=== PATIENT | female | born 1950 | race Caucasian/White ===

== ENCOUNTER 2018-06-17 16:04 | Outpatient (CLI) | payer MEDICARE, OTHER ==
--- NOTE | 2018-07-02 08:58 | Mammography Report ---
Reason: SCREENING MAMMO Procedure Date: 06/17/2018 Accession Number: [id number] / [id number] Procedure: FERNANDO - Screening Mammo w/Ariel CPT Code: FULL RESULT: EXAM: Screening Mammo w/Ariel DATE: 06/17/2018 4:51 PM CLINICAL HISTORY: Screening encounter. History of early menses. History of nulliparity. Personal history of ovarian cancer. Family history of breast cancer in a sister at the age of 60. TECHNIQUE: (B) - Bilateral CC and MLO views were obtained. COMPARISON: None PARENCHYMAL PATTERN: (D) - The breast(s) demonstrate(s) heterogeneously dense fibroglandular parenchyma. FINDINGS: In the right breast retroareolar region 2 cm deep to the nipple, central breast are 3 partially obscured isodense nodules measuring between 0.7 and 0.9 cm. Since prior imaging studies are not made available for comparison, additional imaging workup by focused right breast ultrasound is necessary unless previous imaging can be made available for comparison. There are coarse typically benign calcifications. There are no suspicious masses, calcifications, or areas of distortion. IMPRESSION: Incomplete examination. BI-RADS category 0. RECOMMENDATION: (ADDUS) - Targeted ultrasound recommended. If previous mammographic images are made available for comparison, the need for further imaging may be obviated. BI-RADS CATEGORY: (0) - Incomplete Examination - need additional evaluation. STANDARD QUALIFYING STATEMENTS: 1. This examination was not reviewed with the aid of Computer-Aided Detection (CAD). 2. A negative or benign imaging report should not preclude biopsy if clinically suspicious findings are present. 3. Dense breasts may obscure an underlying neoplasm. 4. This examination was reviewed with the aid of 3D breast imaging (tomosynthesis).
== END 2018-06-17 16:05 | disposition home or self-care (01) ==
LOC: MERGE 16:04 → DI 16:04
PROVIDERS: ATTEND Internal Medicine Hematology & Oncology
DX: Z12.31 Encounter for screening mammogram for malignant neoplasm of breast (principal); R92.8 Other abnormal and inconclusive findings on diagnostic imaging of breast; Z80.3 Family history of malignant neoplasm of breast
CPT/HCPCS: 77063; 77067

== ENCOUNTER 2018-07-10 13:55 | Outpatient (CLI) | payer MEDICARE, OTHER ==
--- NOTE | 2018-07-10 15:31 | Ultrasound Report ---
Reason: ABNORMAL MAMMOGRAM Procedure Date: 07/10/2018 Accession Number: [id number] / [id number] Procedure: US - Breast Unilateral Limited CPT Code: FULL RESULT: EXAM: Breast Unilateral Limited DATE: 07/10/2018 2:58 PM CLINICAL HISTORY: ABNORMAL MAMMOGRAM COMPARISON: 06/17/2018, 04/20/2017 mammography TECHNIQUE: Targeted ultrasound was performed of the right retroareolar breast in the area of mammographic concern. Color Doppler was employed as appropriate. FINDINGS: In the retroareolar right breast no cystic or solid mass, dilated duct, abnormal fluid collection or other abnormality is seen is seen by ultrasound. IMPRESSION: Negative right breast ultrasound. RECOMMENDATION: Routine annual mammographic screening. BIRADS CATEGORY 1: Negative RADIA
== END 2018-07-10 13:56 | disposition home or self-care (01) ==
LOC: DI 13:55
PROVIDERS: ATTEND Internal Medicine Hematology & Oncology
DX: C50.919 Malignant neoplasm of unspecified site of unspecified female breast (principal)
CPT/HCPCS: 76642

== ENCOUNTER 2018-09-24 11:52 | Day surgery (SDC) | payer MEDICARE, OTHER ==
[2018-09-24] MEDS ORDERED: MIDAZOLAM 2 MG/2 ML VIAL IVP ONE (11:53)
[2018-09-24] MEDS ORDERED: fentaNYL 250 MCG/5 ML VIAL IVP ONE (11:53)
[2018-09-24] MEDS ORDERED: LACTATED RINGERS 1,000 ML IV ONE (11:57)
[2018-09-24 15:03] VITALS: BP 108/74
== END 2018-09-24 11:53 | disposition home or self-care (01) ==
LOC: SDS 11:52
PROVIDERS: ATTEND Surgery
PROC: 0DBP8ZZ Excision of Rectum, Via Natural or Artificial Opening Endoscopic (ICD-10-PCS; principal; 2018-09-24 13:30)
DX: R19.5 Other fecal abnormalities (principal); D12.8 Benign neoplasm of rectum; K64.4 Residual hemorrhoidal skin tags; Z85.43 Personal history of malignant neoplasm of ovary; Z15.09 Genetic susceptibility to other malignant neoplasm; Z80.7 Family history of other malignant neoplasms of lymphoid, hematopoietic and related tissues; Z80.8 Family history of malignant neoplasm of other organs or systems; Z80.52 Family history of malignant neoplasm of bladder; Z80.3 Family history of malignant neoplasm of breast; Z80.0 Family history of malignant neoplasm of digestive organs; Z87.891 Personal history of nicotine dependence
CPT/HCPCS: 45385; J3010; J7120

== ENCOUNTER 2019-12-17 13:28 | Outpatient (CLI) | payer MEDICARE, OTHER ==
--- NOTE | 2019-12-18 15:02 | Mammography Report ---
BILATERAL DIGITAL SCREENING MAMMOGRAM 3D/2D: 12/17/2019 CLINICAL: Family history of breast cancer. Routine screening. Comparison is made to exams dated: 07/10/2018 ultrasound, 06/17/2018 mammogram - [facility], 04/20/2017 mammogram - [place], 08/16/2016 mammogram - [facility], 01/07/2016 breast MRI - [facility], and 06/08/2015 mammogram - [facility]. The tissue of both deyanira asts is heterogeneously dense. This may lower the sensitivity of mammography. There are benign calcifications in both breasts. No significant masses, calcifications, or other findings are seen in either breast. There has been no significant interval change. IMPRESSION: BENIGN There is no mammographic evidence of malignancy. A 1 year screening mammogram is recommended. This exam was interpreted at Station ID: [id number]. NOTE: For mammograms, a report in lay terms will be sent to the patient. Approximately 15% of breast malignancies will not be visualized mammographically. In the management of a palpable breast mass, a negative mammogram must not discourage biopsy of a clinically suspicious lesion. Electronically Signed By: Judy [email or web address]:12/17/2019 14:32:09 ACR BI-RADS Category 2: Benign Finding(s) 3342F PARENCHYMAL PATTERN: (D) - The breast(s) demonstrate(s) heterogeneously dense fibroglandular ir[place] cobian. BI-RADS CATEGORY: (2) - 2 RECOMMENDATION: (ANNUAL) - Recommend routine annual screening mammography. [id number] 1 year screening LATERALITY: (B)
== END 2019-12-17 13:29 | disposition home or self-care (01) ==
LOC: DI.N 13:28
PROVIDERS: ATTEND Internal Medicine Hematology & Oncology
DX: Z12.31 Encounter for screening mammogram for malignant neoplasm of breast (principal); Z15.01 Genetic susceptibility to malignant neoplasm of breast; Z80.3 Family history of malignant neoplasm of breast
CPT/HCPCS: 77063; 77067